=== PATIENT | male | born 1950 | race Caucasian/White ===

== ENCOUNTER 2018-01-16 17:21 | Observation (INO) | payer MEDICARE, OTHER ==
[~2018-01-16] VITALS: Ht 172.7 cm; Wt 52.6 kg
--- NOTE | 2018-01-17 09:22 | OR ---
[facility] [address], [place] [address] Signed DATE OF OPERATION: 01/16/2018 SURGEON: Tc Fox MD PREOPERATIVE DIAGNOSIS: 10 cm complex multiloculated abscess region of umbilicus 10 cm. POSTOPERATIVE DIAGNOSIS: Complex abdominal wall abscess with eroding smegmatis mass at base of umbilicus. PROCEDURE: 1. Incision and drainage of abdominal wall abscess. 2. Complex debridement of soft tissue, including muscle, skin and fascia region of umbilicus. 3. Extraction of stone like debris at base of the umbilicus. SURGEON: Tc Fox MD ANESTHESIA: General endotracheal, Tc Yancey CRNA INDICATION: This 67-year-old white man is from [place], now transitioning to live in [facility]. He presented to Dr. Cortes in [facility] earlier today with soft tissue mass swelling, tenderness, and erythema around the umbilicus. He had this occurring for the past 3 weeks. His white count was noted to be elevated to 14.4. 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 He has been fluid resuscitated, and is taken to operation for incision and drainage, and debridement of the abscess depending on its origin. Of special note, an ultrasound was performed in [place], which showed a complex trabeculated type abscess. Findings, indeed there was purulent material. Simple drainage along was not adequate, as there was chronic fibrotic trabeculation, which extended below the rectus fascia, and below the rectus muscle itself to the properitoneal space actually. It was ultimately found to be related to erosion of umbilical foreign body, (a lint ball, or smegmalith) that had eroded to the deep space causing abscess and infection. By conclusion, debridement back to healthy tissue has been accomplished, as well as withdrawal of the smegmatis stone. DESCRIPTION OF PROCEDURE: Electronically Signed By: TC FOX MD 01/17/18 0922 PATIENT NAME: LEENA DAS OPERATIVE REPORT DATE OF : 48 REPORT #: [id number] PHYSICIAN: TC FOX MD PCP: ANGEL KOLB MD REPORT IS CONFIDENTIAL AND NOT TO BE RELEASED WITHOUT AUTHORIZATION [facility] [address], [place] [address] Signed The patient was brought to the operating room, given a general endotracheal anesthetic. Preoperative antibiotic Ancef was given 2 g in total. Sequential compression device stockings used. Heparin was subcutaneously administered. After satisfactory anesthesia, the abdomen was prepared with a chlorhexidine solution and draped sterilely. Palpation of the mass showed it to be eccentrically positioned dominantly to the left. A small transverse incision was made on the edge of the mass laterally on the left and using hemostat the dense mass was penetrated, and egress of thick purulent material was noted. Gram stain and cultures were obtained. Breakdown of loculations with a hemostat was undertaken extending to the umbilicus itself, which had some purulent material suggestive of egress, and spontaneous drainage. This area was connected and a yellow vessel loop was passed between the two stab incisions. Elevation of the yellow vessel loop allowed for interrogation of the complex trabeculated cavity additionally. Further breakdown of the trabeculation was undertaken with a hemostat. The incision was extended a bit to allow for insinuation of the digit given the complexity of the area. This showed dense trabeculated areas one extending below the anterior rectus fascia toward the midline. This was interrogated more fully and given the fibrotic and dense nature of the finding an incision was extended fully to the umbilicus extending the incision approximately 5 cm in length. Upon opening, one could see chronic fibrotic chambers extending below the rectus fascia bit. Debridement back to healthy tissue was undertaken with sharp electrocautery dissection, and hemostasis assured with electrocautery more fully. Transection of the anterior rectus sheath and rectus muscle toward the midline was required. Further dissection in the region of the umbilicus showed what appeared to be a dense fecalith in the depths of the wound. The umbilical skin proper was transected down to the base showing a large foreign body consistent with a lint ball, or smegmatis stone that likely had eroded from the umbilicus itself into the deep soft tissue. This was explanted and photographs were taken. The skin as would be expected extended down to the midline fascia and this was divided entirely and ultimately debrided revealing the fibrinous cavity as the origin of the abscess. Once complete debridement was undertaken, irrigation was undertaken fully and completely viable tissue remained. The wound was then packed with Kerlix gauze and abdominal dressing applied. The patient was ultimately extubated and transferred to recovery in good condition having suffered no complications. Sponge, needle and instrument counts reported as correct x3. MD MAGDA Mclean/YOLANDA Electronically Signed By: TC FOX MD 01/17/18 0922 PATIENT NAME: LEENA DAS OPERATIVE REPORT DATE OF : 48 REPORT #: [id number] PHYSICIAN: TC FOX MD PCP: ANGEL KOLB MD REPORT IS CONFIDENTIAL AND NOT TO BE RELEASED WITHOUT AUTHORIZATION [facility] [address] [place] [address] Signed /[id number] cc: Almas Cortes MD Copies: ALMAS CORTES MD ~ Electronically Signed By: TC FOX MD 01/17/18 0922 PATIENT NAME: LEENA DAS OPERATIVE REPORT DATE OF : 48 REPORT #: [id number] PHYSICIAN: TC FOX MD PCP: ANGEL KOLB MD REPORT IS CONFIDENTIAL AND NOT TO BE RELEASED WITHOUT AUTHORIZATION
--- NOTE | 2018-01-17 09:22 | HP ---
[facility] [address], [place] [address] Signed ADMISSION DATE: 01/16/2018 REASON FOR ADMISSION: Umbilical abscess. HISTORY OF PRESENT ILLNESS: This 67-year-old white man has lived in [place] for many years and now has moved to [facility] [place] [facility]. He presented to the emergency room in [place], and was evaluated by Dr. Cortes with complaints of swelling in the umbilical area that has been going on for the past 3 weeks. He did have local tenderness noted in this area. There is umbilical purulent discharge, and marked tenderness in the area. An ultrasound was performed interpreted by Dr. Tellez, [facility] showing a multiloculated abscess measuring 10 cm in maximum dimension. There was no evidence of intraperitoneal abnormality. I accepted the patient in transfer from [place] for further management to include probable incision and drainage of the area. PAST MEDICAL HISTORY: Does include tonsillectomy in childhood, but no abdominal operation in the past. SOCIAL HISTORY: He smokes a pack of cigarettes a day. Previously an alcoholic. He has not had alcohol intake in 5 years. He does smoke marijuana daily. Although he lives in [facility], he has family in the [place] area, including a family member who is anticipating chemotherapy for head and neck cancer of some sort. REVIEW OF SYSTEMS: He denies any fever, or chills. He has had no dysphagia or dysuria, but when he strains he has marked tenderness and pain at the umbilicus. PHYSICAL EXAMINATION: GENERAL: A thin white man who looks to be far older than his stated age of 66. Trachea is midline. He is very thin. I detect no carotid bruit. CHEST: Shows diminished respiratory excursion. ABDOMEN: Slightly protuberant, but not distended per se. He has marked tenderness in the region of the umbilicus and excoriation or desquamation of the umbilical skin deeply. I see no sign of drainage at this time. He does have erythema. There was no crepitus. EXTREMITIES: No clubbing, cyanosis, or edema. Electronically Signed By: TC FOX MD 01/17/18 0922 PATIENT NAME: LEENA DAS HISTORY AND PHYSICAL DATE OF : 48 REPORT #: [id number] PHYSICIAN: TC FOX MD PCP: ANGEL KOLB MD REPORT IS CONFIDENTIAL AND NOT TO BE RELEASED WITHOUT AUTHORIZATION [facility] [address], [place] [address] Signed LABORATORY DATA: Lab studies obtained earlier in the day show normal electrolytes including a potassium of 4.1, creatinine is 0.7. Liver enzymes are normal. CRP is greater than 20.8. White count is 14.4, hematocrit 49, platelet count 410,000. Urinalysis is essentially normal. ASSESSMENT: He appears to have a complex multiloculated abscess in the region of the umbilicus, for which incision and drainage has been recommended. The risks of bleeding, infection, missed diagnosis, failure of diagnosis, need for other indicated procedures and so forth were reviewed with him. We will plan to facilitate drainage this evening, though he does not show signs of systemic toxicity at this time. I think it unlikely that he has a transmural process (fistula from the bowel or colocutaneous process) though these are considerations of course. His imaging study did show multiloculated abscess and will be prepared for other eventualities. I told him about this as well. Most likely, incision and drainage and debridement will be undertaken with placement of a drain. Tc Fox MD /PHOEBEL /[id number] cc: Almas Cortes MD Copies: ALMAS CORTES MD ~ Electronically Signed By: TC FOX MD 01/17/18 0922 PATIENT NAME: LEENA DAS HISTORY AND PHYSICAL DATE OF : 48 REPORT #: [id number] PHYSICIAN: TC FOX MD PCP: ANGEL KOLB MD REPORT IS CONFIDENTIAL AND NOT TO BE RELEASED WITHOUT AUTHORIZATION
[2018-01-17] MEDS ORDERED: NICOTINE PATCH1 EAC1 TD (15:39)
[2018-01-17] MEDS ORDERED: HYDROCODON-ACE1 EA10 PO (15:39)
[2018-01-17] MEDS ORDERED: IBUPROFEN600 MG PO (15:39)
[2018-01-17] MEDS ORDERED: TYLENOL325 MG PO (15:40)
--- NOTE | 2018-01-17 17:14 | EKG ---
[facility] [address] [facility] [place] [address] Signed Normal sinus rhythm Low voltage QRS Borderline ECG No previous ECGs available Confirmed by ASHOK RILEY MD ([id number]) on 01/17/2018 5:13:55 PM Electronically Signed By: ASHOK RILEY MD 01/17/18 1714 PATIENT NAME: LEENA DAS Electrocardiogram DATE OF : 48 PHYSICIAN: ASHOK RILEY MD REPORT #: [id number] REPORT IS CONFIDENTIAL AND NOT TO BE RELEASED WITHOUT AUTHORIZATION
== END 2018-01-17 17:10 | disposition home or self-care (01) ==
LOC: MS 17:21
PROVIDERS: ADMIT Surgery
PROC: 0JD80ZZ Extraction of Abdomen Subcutaneous Tissue and Fascia, Open Approach (ICD-10-PCS; 2018-01-16)
PROC: 0J980ZZ Drainage of Abdomen Subcutaneous Tissue and Fascia, Open Approach (ICD-10-PCS; principal; 2018-01-16 20:00)
DX: L02.211 Cutaneous abscess of abdominal wall (principal); R19.05 Periumbilic swelling, mass or lump; F10.21 Alcohol dependence, in remission; F17.210 Nicotine dependence, cigarettes, uncomplicated; Z23 Encounter for immunization; R63.6 Underweight; Z68.1 Body mass index [BMI] 19.9 or less, adult
CPT/HCPCS: 00400; 87070; 87075; 87076; 87077; 87185; 87205; 88304; 90662; 93005; 93010; 96372; 96374; 96375; 96376; 99406; G0008; G0378; J0690; J1100; J1644; J1885; J2250; J2405; J2704; J2765; J3010; J7120